=== PATIENT | male | born 1965 | race Caucasian/White ===

== ENCOUNTER 2017-10-27 07:45 | Emergency (ER) | payer OTHER ==
[~2017-10-27] VITALS: Ht 172.7 cm; Wt 65.8 kg
[2017-10-27 07:45] VITALS: BP 126/81
== END 2017-10-27 08:38 | disposition home or self-care (01) ==
LOC: ER 07:48
DX: B86 Scabies (principal)
CPT/HCPCS: 99282; A4606; Z7610